=== PATIENT | male | born 1980 | race Caucasian/White ===

== ENCOUNTER 2023-03-24 23:37 | Emergency (ER) | payer OTHER ==
[~2023-03-24] VITALS: Ht 193 cm; Wt 104.5 kg
[2023-03-24 23:54] LABS: BASOPHILS % (AUTO) 0.6 % (0-1); EOSINOPHILS # (AUTO) 0.1 X10'3 (0-0.9); EOSINOPHILS % (AUTO) 1.1 % (0-6); HEMATOCRIT 46.1 % (42.0-52.0); LYMPHOCYTES # (AUTO) 2.7 X10'3 (1.1-4.8); LYMPHOCYTES % (AUTO) 32.8 % (21-51); MEAN CORPUSCULAR HEMOGLOBIN 32.6 PG (27.0-31.0); MEAN CORPUSCULAR HGB CONC 34.7 g/dL (33.0-36.5); MEAN PLATELET VOLUME 6.3 FL (7.4-10.4); MONOCYTES # (AUTO) 0.9 X10'3 (0-0.9); MONOCYTES % (AUTO) 10.3 % (2-12); NEUTROPHILS # (AUTO) 4.6 X10'3 (1.8-7.7); NEUTROPHILS % (AUTO) 55.2 % (42-75); PLATELET COUNT 218 X10'3 (140-440); RED CELL DISTRIBUTION WIDTH 12.4 % (11.5-14.5); WHITE BLOOD COUNT 8.3 X10'3 (4.5-11.0)
[2023-03-25 00:10] LABS: ALANINE AMINOTRANSFERASE 41 U/L (12-78); ALBUMIN 4.1 G/DL (3.4-5.0); ALBUMIN/GLOBULIN RATIO 1.3 (1.1-1.5); ALKALINE PHOSPHATASE 51 IU/L (46-116); ANION GAP 10 (8-16); ASPARTATE AMINO TRANSFERASE 39 U/L (10-37); BILIRUBIN,TOTAL 0.5 MG/DL (0.1-1.0); BLOOD UREA NITROGEN 10 MG/DL (7-18); BUN/CREATININE RATIO 13.7 (10.0-20.0); CHLORIDE 105 MMOL/L (99-107); CREATININE 0.73 MG/DL (0.60-1.10); ETHANOL 263 MG/DL (<10); GLUCOSE 99 MG/DL (70-104); POTASSIUM 3.4 MMOL/L (3.5-5.1); SODIUM 142 MMOL/L (135-145); TOTAL CARBON DIOXIDE 26.9 MMOL/L (24-32); TOTAL PROTEIN 7.2 G/DL (6.4-8.2); eGFR > 90 ML/MIN
--- NOTE | 2023-03-25 00:30 | NUR ---
The patient is a 42 year old male who was brought in by police on a written 5150 for DTS after he called them he was suicidal and had a plan to hang himself and had a rope set up in his garage. He stated that he has a history of bipolar. He reports he takes medications but doesn't feel they are helpful. He stated that he drinks daily and is an alcoholic. He is and has young children. 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 His BA was 263. He was made aware of the assessment process and that he would be seen by [facility] in the morning. He was cooperative and pleasant. He denies prior hx of being on a psychiatric hold or being in a psychiatric hospital.
[2023-03-25] MEDS ORDERED: RISP0.5T65 PO (00:48)
[2023-03-25] MEDS ORDERED: CLON1TAB12 PO (00:48)
[2023-03-25] MEDS ORDERED: PROP10TA10 PO (00:48)
[2023-03-25 00:59] LABS: THYROID STIMULATING HORMONE 1.71 ulU/ml (0.34-4.50)
[2023-03-25 00:59] LABS: URINE AMPHETAMINE SCREEN NEGATIVE (Neg); URINE BARBITUATE SCREEN NEGATIVE (Neg); URINE BENZODIAZEPINES SCREEN NEGATIVE (Neg); URINE CANNABINOID SCREEN POSITIVE (Neg); URINE COCAINE SCREEN NEGATIVE (Neg); URINE METHADONE SCREEN NEGATIVE (Neg); URINE OPIATE SCREEN NEGATIVE (Neg); URINE PHENCYCLIDINE SCREEN NEGATIVE (Neg)
[2023-03-25] MEDS ORDERED: clonazePAM 1mg tablet PO PRN (01:35)
--- NOTE | 2023-03-25 02:00 | NUR ---
The patient appears to be sleeping.
--- NOTE | 2023-03-25 02:15 | NUR ---
PACKET SENT TO [facility]
[2023-03-25 02:41] LABS: BILIRUBIN,URINE NEGATIVE (Neg); CLARITY,URINE CLEAR (Clear); COLOR,URINE STRAW (Yellow); GLUCOSE, URINE NEGATIVE (Neg); KETONES,URINE NEGATIVE (Neg); LEUKOCYTE ESTERASE ,URINE NEGATIVE (Neg); NITRITES, URINE NEGATIVE (Neg); OCCULT BLOOD,URINE NEGATIVE (Neg); PROTEIN,URINE NEGATIVE (Neg); UROBILINOGEN,URINE 0.2 E.U/dL (0.2-1.0)
[2023-03-25 02:46] LABS: UA COLLECTION TYPE CLN CATCH MIDSTREAM
--- NOTE | 2023-03-25 03:01 | NUR ---
The patient appears to be sleeping
--- NOTE | 2023-03-25 05:05 | NUR ---
The patient appears to be sleeping
--- NOTE | 2023-03-25 07:07 | NUR ---
Patient on the phone attempting to call his work. No distress observed. Continue to monitor.
[2023-03-25] MEDS ORDERED: risperiDONE 0.5mg tablet PO SCH (08:00)
[2023-03-25] MEDS ORDERED: propranolol 10mg tablet PO SCH (08:00)
[2023-03-25 08:01] VITALS: BP 108/66; PULSE 56; RESP 12; TEMP 98.5; O2SAT 99
--- NOTE | 2023-03-25 08:15 | NUR ---
Patient eating breakfast. No distress observed. Continue to monitor.
--- NOTE | 2023-03-25 10:55 | NUR ---
Charlotte IZAGUIRRE, evaluating patient. was walked to the waiting room during evaluation. Continue to monitor.
--- NOTE | 2023-03-25 11:50 | NUR ---
Met with patient in regards to alcohol use and to see if patient was interested in resources for treatment options. Patient is interested in outpatient resources. I discussed with patient about starting Naltrexone, getting a sponsor and going to AA meetings. I gave patient a list of resources, a card for [facility] and my card to call me with any questions.
== END 2023-03-25 13:17 | disposition home or self-care (01) ==
LOC: ER 23:38
DX: R45.851 Suicidal ideations (principal); Z20.822 Contact with and (suspected) exposure to COVID-19; Z88.8 Allergy status to other drugs, medicaments and biological substances; Z79.899 Other long term (current) drug therapy
CPT/HCPCS: 36415; 80053; 80305; 80320; 81003; 84443; 85025; 87811; 99285